=== PATIENT | female | born 1980 | race Caucasian/White ===

== ENCOUNTER → 2016-12-13 | Outpatient (CLI) | payer BC ==
[~2016-12-13] MED LIST: BUPR-102 PO; CHOL100010 PO; CITA10TA4 PO; LISI-789 PO; MULT-506 PO
== END | disposition home or self-care (01) ==
LOC: C.PAPS 13:51
PROVIDERS: ATTEND Physician Assistant
DX: Z01.419 Encounter for gynecological examination (general) (routine) without abnormal findings (principal)